=== PATIENT | female | born 1950 | race Caucasian/White ===

== ENCOUNTER 2017-09-15 07:00 | Day surgery (SDC) | payer MEDICARE, BC ==
[2017-09-15] MEDS ORDERED: Propofol 200 MG/20 ML SDV ONE ×2 (08:07→08:34)
[2017-09-15] MEDS ORDERED: fentaNYL 100 MCG/2 ML SDV ONE (08:07)
[2017-09-15] MEDS: Lactated Ringers 1,000 ML IV SCH (08:16)
--- NOTE | 2017-09-15 10:11 | OR ---
DATE OF SURGERY: 09/15/2017. REFERRING PROVIDER: Milton Tomlinson MD. PRE-OPERATIVE DIAGNOSES: 1. Positive Cologuard stool card. Patient had previous incomplete colonoscopy in 2005 along with barium enema following that. She does have history of diverticulosis as well as hemorrhoids. POST-OPERATIVE DIAGNOSES: 1. Two polyps removed. a. A. 3 mm polyp at the ileocecal valve removed with cold forceps. b. B. 6 mm sessile polyp at 70 cm, removed with hot snare. 2. Severe left-sided diverticulosis without any evidence of inflammation or bleeding. 3. Severe external hemorrhoids, not acutely inflamed. PROCEDURE: Colonoscopy with polypectomy x2 (1 using cold forceps and 1 using hot snare). SURGEON: Oneal Leavitt M.D. ANESTHESIA: Monitored anesthesia care. BOWEL PREP: Fair, did require lots of suctioning. There were some rounded stool particles from the diverticula. DESCRIPTION OF PROCEDURE: Kiki is a 67-year-old female. The patient was brought to the endoscopy suite after discussing risks and benefits of the procedure. Informed consent was obtained for conscious sedation and colonoscopy with or without biopsy and/or polypectomy. We also discussed possibility of missed lesions. Pre-procedure exam was unremarkable. IV, oxygen, and monitors were placed. The patient was placed in the left lateral decubitus position. Sedation was administered and a digital rectal exam was performed and was remarkable for severe external hemorrhoids, not acutely inflamed. Colonoscope was passed into the rectum and slowly advanced all the way to the cecum. Cecum was viewed and photographed. There was a 3-mm polyp on the ileocecal valve, which was removed using cold forceps. The colonoscope was slowly withdrawn and the mucosa was closed observed in a direct circumferential manner. The ascending colon was unremarkable. The transverse colon was unremarkable. The descending colon and sigmoid colon did reveal severe diverticulosis without any evidence of inflammation. Near the splenic flexure there was a 6 mm sessile polyp, which was photographed and removed with hot snare. Retroflexion was performed and rectal mucosa was unremarkable. Scope was removed. The patient tolerated the procedure well. The patient was monitored until that baseline status. Discharge instructions were reviewed and the patient was discharged in good condition. COMPLICATIONS: None. TOTAL TIME: 28 minutes. ESTIMATED BLOOD LOSS: Less than 1 mL. RECOMMENDATIONS/FOLLOW-UP: We will await results of path report to determine ideal followup interval. I would like to kindly thank, Dr. Tomlinson and Dr. Mota for this referral. We will have the patient hold her aspirin for 3 days to limit any chance of bleeding. DMB: 09/15/2017 09:12:59 MODL: 09/15/2017 10:06:52 /[id number]
== END 2017-09-15 10:35 | disposition home or self-care (01) ==
LOC: VM.SDS 07:00
PROVIDERS: ATTEND Family Medicine
DX: R19.5 Other fecal abnormalities (principal); D12.0 Benign neoplasm of cecum; K63.5 Polyp of colon; K57.30 Diverticulosis of large intestine without perforation or abscess without bleeding; K64.4 Residual hemorrhoidal skin tags; I11.0 Hypertensive heart disease with heart failure; I50.32 Chronic diastolic (congestive) heart failure; E66.8 Other obesity; Z68.35 Body mass index [BMI] 35.0-35.9, adult; E78.00 Pure hypercholesterolemia, unspecified; E89.0 Postprocedural hypothyroidism; Z79.899 Other long term (current) drug therapy; Z79.82 Long term (current) use of aspirin; Z88.0 Allergy status to penicillin
CPT/HCPCS: 00811; J2704; J3010; J7120

== ENCOUNTER 2018-01-19 23:30 | Emergency (ER) | payer MEDICARE, BC ==
[2018-01-19] MEDS ORDERED: GI Cocktail Oral Solution 30 ML PO ONE (23:55)
--- NOTE | 2018-01-19 23:56 | EDM.PDOC ---
ED HPI GENERAL MEDICAL PROBLEM - General Chief Complaint: Abdominal Pain Stated Complaint: Epigastric pain Time Seen by Provider: 01/19/18 23:51 Source of Information: Reports: Patient History Limitations: Reports: No Limitations - History of Present Illness INITIAL COMMENTS - FREE TEXT/NARRATIVE: Patient reports pain to the epigastric area that caused her to awake from sleep. She reports a chicken and rice meal at around 5 pm and went to bed at about 9:30 pm. She awoke at 1130 with pain to the epigastric area that was relieved with belching on her way into the ER. She denies pain currently. She denies headache, recent illness, no SOB, no chest or abdominal pain. States she had a BM today but is constipated at times. Denies any urinary symptoms. No back pain. No blood in urine or stool. Medical history includes HTN, thyroidectomy, hypercholesterolemia, arthritis. She has had her gallbladder removed. Denies smoking, alcohol, or drug use. Onset: Today, Sudden Duration: Resolved Prior to Arrival Location: Reports: Abdomen Quality: Reports: Sharp Severity: Mild Associated Symptoms: Reports: No Other Symptoms - Related Data Allergies Allergy/AdvReac Type Severity Reaction Status Date / Time amoxicillin Allergy Rash Verified 09/15/17 07:28 Home Meds: Home Meds Aspirin 325 mg PO DAILY 09/14/17 [History] Calcium Carb/Vitamin D3/Vit K1 [Calcium + Vit D & K Chew] 1 tab PO TID 09/14/17 [History] Ibuprofen [Advil] 600 mg PO BID PRN 09/14/17 [History] Latanoprost [Xalatan 0.005% Ophth Soln] 1 drop EYEBOTH BEDTIME 09/14/17 [History ] Levothyroxine [Synthroid] 100 mcg PO DAILY 09/14/17 [History] Lisinopril/Hydrochlorothiazide [Zestoretic 20-12.5 mg Tablet] 0.5 tab PO DAILY 09/14/17 [History] Simvastatin [Zocor] 40 mg PO BEDTIME 09/14/17 [History] Past Medical History HEENT History: Reports: Allergic Rhinitis, Cataract, Other (See Below) Other HEENT History: tinnitus Cardiovascular History: Reports: Heart Failure, High Cholesterol, Hypertension Gastrointestinal History: Reports: Diverticulosis, Hemorrhoids Musculoskeletal History: Reports: Osteoarthritis Endocrine/Metabolic History: Reports: Hypothyroidism, Obesity/BMI 30+, Osteopenia, Other (See Below) Other Endocrine/Metabolic History: hyperglycemia Dermatologic History: Reports: Psoriasis - Past Surgical History GI Surgical History: Reports: Appendectomy, Cholecystectomy, Colonoscopy, Hernia Repair/Other ED ROS GENERAL - Review of Systems Review Of Systems: See Below Constitutional: Reports: No Symptoms HEENT: Reports: No Symptoms Respiratory: Reports: No Symptoms Cardiovascular: Reports: No Symptoms Endocrine: Reports: No Symptoms GI/Abdominal: Reports: Abdominal Pain : Reports: No Symptoms Musculoskeletal: Reports: No Symptoms Skin: Reports: No Symptoms Neurological: Reports: No Symptoms Psychiatric: Reports: No Symptoms Hematologic/Lymphatic: Reports: No Symptoms Immunologic: Reports: No Symptoms ED EXAM, GI/ABD - Physical Exam Exam: See Below Exam Limited By: No Limitations General Appearance: Alert, WD/WN, No Apparent Distress Eyes: Bilateral: Normal Appearance, EOMI Ears: Normal TMs Nose: Normal Inspection, Normal Mucosa, No Blood Throat/Mouth: Normal Inspection, Normal Lips, Normal Teeth, Normal Gums, Normal Oropharynx, Normal Voice, No Airway Compromise Head: Atraumatic, Normocephalic Neck: Normal Inspection, Supple, Non-Tender, Full Range of Motion Respiratory/Chest: No Respiratory Distress, Lungs Clear, Normal Breath Sounds, No Accessory Muscle Use, Chest Non-Tender Cardiovascular: Bradycardia GI/Abdominal Exam: Normal Bowel Sounds, Soft, Non-Tender, No Organomegaly, No Distention, No Abnormal Bruit, No Mass, Pelvis Stable Back Exam: Normal Inspection, Full Range of Motion, NT Extremities: Normal Inspection, Normal Range of Motion, Non-Tender, Normal Capillary Refill, No Pedal Edema Neurological: Alert, Oriented, CN II-XII Intact, Normal Cognition, Normal Gait, Normal Reflexes, No Motor/Sensory Deficits Psychiatric: Normal Affect, Normal Mood Skin Exam: Warm, Dry, Intact, Normal Color, No Rash Lymphatic: No Adenopathy Course - Vital Signs Last Recorded V/S: Last Vital Signs Temp 36.8 C 01/19/18 23:30 Pulse 59 L 01/19/18 23:30 Resp 16 01/19/18 23:30 BP 153/79 H 01/19/18 23:30 Pulse Ox 98 01/19/18 23:30 - Orders/Labs/Meds Orders: Active Orders 24 hr Category Date Time Status EKG 12 Lead [EKG Documentation Completion] [RC] STAT Care 01/19/18 23:54 Active COMPREHENSIVE METABOLIC PN,CMP [CHEM] Stat Lab 01/19/18 23:54 Ordered CREATINE KINASE,CK [CHEM] Stat Lab 01/19/18 23:54 Ordered CRP [C-REACTIVE PROTEIN] [CHEM] Stat Lab 01/19/18 23:54 Ordered INR,PT,PROTHROMBIN TIME [COAG] Stat Lab 01/19/18 23:54 Ordered MAGNESIUM [CHEM] Stat Lab 01/19/18 23:54 Ordered PRO B-TYPE NATRIUR PEPT,BNPPRO [CHEM] Stat Lab 01/19/18 23:54 Ordered TROPONIN I [CHEM] Stat Lab 01/19/18 23:54 Ordered TSH ULTRASENSITIVE [CHEM] Stat Lab 01/19/18 23:54 Ordered Labs: Laboratory Tests 01/20/18 Range/Units 00:07 WBC 6.8 (4.0-10.0) x10^3/uL RBC 4.17 (4.00-5.50) x10^6/uL Hgb 12.7 (12.0-16.0) g/dL Hct 38.9 (33.0-47.0) % MCV 93.3 H (78.0-93.0) fL MCH 30.5 (26.0-32.0) pg MCHC 32.6 (32.0-36.0) g/dL RDW Coeff of Marya 13.4 (10.0-15.0) % Plt Count 184 (130-400) x10^3/uL Neut % (Auto) 66.2 (50.0-80.0) % Lymph % (Auto) 21.9 L (25.0-50.0) % [place] % (Auto) 8.6 (2.0-11.0) % Eos % (Auto) 3.0 (0.0-4.0) % Baso % (Auto) 0.3 (0.2-1.2) % Meds: Medications Discontinued Medications Generic Name Dose Route Start Last Admin Trade Name Freq PRN Reason Stop Dose Admin Al Hydroxide/Mg Hydroxide 30 ml 01/19/18 23:55 01/20/18 00:18 Gi Cocktail PO 01/19/18 23:56 30 ml ONETIME ONE Administration Departure - Departure Time of Disposition: 00:59 Disposition: Home, Self-Care 01 Condition: Good Clinical Impression: GERD with esophagitis - Discharge Information *PRESCRIPTION DRUG MONITORING PROGRAM REVIEWED*: Not Applicable *COPY OF PRESCRIPTION DRUG MONITORING REPORT IN PATIENT CORI: Not Applicable Instructions: Food Choices for Gastroesophageal Reflux Disease, Adult, Easy-to- Read, Heartburn, [id number], Gastroesophageal Reflux Disease, Adult, Easy-to- Read Forms: ED Department Discharge Additional Instructions: Follow up with your primary doctor for further follow up; especially if symptoms persist. This could be gastric reflux, however you could also have an ulcer. You may need to have an EGD if your pain keeps recurring. Drink plenty of water. Review your diet and try to eat lower fat and grease containing foods. Make sure you eat more than an hour before you lay down to go to bed. I did include dietary tips for reflux. Please call the emergency room if you have any further questions or concerns. - Problem List & Annotations (1) GERD with esophagitis SNOMED Code(s): 159352417 Code(s): K21.0 - GASTRO-ESOPHAGEAL REFLUX DISEASE WITH ESOPHAGITIS Status: Acute Priority: Medium Current Visit: No - Problem List Review Problem List Initiated/Reviewed/Updated: Yes - My Orders Last 24 Hours: My Active Orders 01/19/18 23:54 EKG 12 Lead [EKG Documentation Completion] [RC] STAT COMPREHENSIVE METABOLIC PN,CMP [CHEM] Stat CREATINE KINASE,CK [CHEM] Stat CRP [C-REACTIVE PROTEIN] [CHEM] Stat INR,PT,PROTHROMBIN TIME [COAG] Stat MAGNESIUM [CHEM] Stat PRO B-TYPE NATRIUR PEPT,BNPPRO [CHEM] Stat TROPONIN I [CHEM] Stat TSH ULTRASENSITIVE [CHEM] Stat - Assessment/Plan Last 24 Hours: My Active Orders 01/19/18 23:54 EKG 12 Lead [EKG Documentation Completion] [RC] STAT COMPREHENSIVE METABOLIC PN,CMP [CHEM] Stat CREATINE KINASE,CK [CHEM] Stat CRP [C-REACTIVE PROTEIN] [CHEM] Stat INR,PT,PROTHROMBIN TIME [COAG] Stat MAGNESIUM [CHEM] Stat PRO B-TYPE NATRIUR PEPT,BNPPRO [CHEM] Stat TROPONIN I [CHEM] Stat TSH ULTRASENSITIVE [CHEM] Stat Plan: Follow up with your primary doctor for further follow up; especially if symptoms persist. This could be gastric reflux, however you could also have an ulcer. You may need to have an EGD if your pain keeps recurring. Drink plenty of water. Review your diet and try to eat lower fat and grease containing foods. Make sure you eat more than an hour before you lay down to go to bed. I did include dietary tips for reflux. Please call the emergency room if you have any further questions or concerns.
[2018-01-20 00:48] LABS: CHLORIDE,CL 105 mmol/L (98-107); SODIUM,NA 140 mmol/L (136-145)
[2018-01-20 00:56] LABS: ANION GAP 10.2 mmol/L (10-20)
== END 2018-01-20 00:59 | disposition home or self-care (01) ==
LOC: VM.ED 23:30
DX: K21.0 Gastro-esophageal reflux disease with esophagitis (principal); I11.0 Hypertensive heart disease with heart failure; I50.9 Heart failure, unspecified; E03.9 Hypothyroidism, unspecified; Z79.82 Long term (current) use of aspirin; Z79.899 Other long term (current) drug therapy; Z88.0 Allergy status to penicillin
CPT/HCPCS: 36415; 80053; 82550; 83735; 83880; 84443; 84484; 85025; 85610; 86140; 93005; 99284; A9270

== ENCOUNTER 2023-01-06 11:04 | Day surgery (SDC) | payer MEDICARE, BC ==
[2023-01-06] MEDS: Lactated Ringers 1,000 ML IV SCH (11:37)
[2023-01-06] MEDS ORDERED: Propofol 200 MG/20 ML SDV ONE (11:40)
[2023-01-06] MEDS ORDERED: Midazolam 1 MG/ML 2 ML SDV ONE (12:13)
[2023-01-06] MEDS ORDERED: fentaNYL 100 MCG/2 ML SDV ONE (12:13)
== END 2023-01-06 13:43 | disposition home or self-care (01) ==
LOC: VM.SDS 11:04
PROVIDERS: ATTEND Family Medicine
DX: D12.4 Benign neoplasm of descending colon (principal); K57.30 Diverticulosis of large intestine without perforation or abscess without bleeding; K64.4 Residual hemorrhoidal skin tags; K64.8 Other hemorrhoids; E78.00 Pure hypercholesterolemia, unspecified; I11.0 Hypertensive heart disease with heart failure; I50.30 Unspecified diastolic (congestive) heart failure; E03.9 Hypothyroidism, unspecified; E03.4 Atrophy of thyroid (acquired); E66.9 Obesity, unspecified; E53.8 Deficiency of other specified B group vitamins; K21.9 Gastro-esophageal reflux disease without esophagitis; M25.562 Pain in left knee; G89.29 Other chronic pain; R73.9 Hyperglycemia, unspecified; N81.10 Cystocele, unspecified; J30.9 Allergic rhinitis, unspecified; Z88.0 Allergy status to penicillin; Z68.41 Body mass index [BMI] 40.0-44.9, adult; Z90.49 Acquired absence of other specified parts of digestive tract; Z79.82 Long term (current) use of aspirin; Z98.890 Other specified postprocedural states; Z79.899 Other long term (current) drug therapy
CPT/HCPCS: 00731; 00811; 88305; J2250; J2704; J3010; J7120